=== PATIENT | male | born 1955 | race Caucasian/White ===

== ENCOUNTER → 2024-05-11 | Outpatient (CLI) | payer MEDICARE, SELFPAY ==
[2024-05-11 09:47] LABS: Collection Type, Urine Clean Catch; Squamous Epithelial Cell,Urine 0 /hpf (0-5)
[2024-05-11 10:27] LABS: Glucose Estimated Average 123 mg/dL (80-131); Hemoglobin A1C 5.9 % Hgb (4.8-6.0)
[2024-05-11 10:38] LABS: Albumin, Serum 4.4 gm/dL (3.4-4.8); Anion Gap 6 (7-16); BUN/Creatinine Ratio 11 Ratio (12-20); Blood Urea Nitrogen 18 mg/dL (9-23); Calcium 8.9 mg/dL (8.3-10.6); Calcium (Corrected) 8.9 mg/dL (8.5-10.1); Carbon Dioxide 35.4 mMol/L (20.0-31.0); Chloride 99 mMol/L (98-107); Creatinine (Component) 1.6 mg/dL (0.6-1.3); Glucose 178 mg/dL (74-106); Magnesium 1.2 mg/dL (1.6-2.6); Osmolality,Calculated 285 (275-295); Phosphorous 2.6 mg/dL (2.4-5.1); Potassium 3.1 mMol/L (3.4-5.1); Sodium 140 mMol/L (136-145); eGFR 46 See Note
[2024-05-11 10:39] LABS: Basophils % (Auto) 0 % (0-2.5); Eosinophils # (Auto) 0.1 Thou/mm3 (0.0-0.5); Eosinophils % (Auto) 2 % (0-10); Hematocrit 41.3 % (41.0-53.0); Hemoglobin 14.6 g/dL (13.5-16.0); Immature Granulocytes % (Auto) 0 % (0-0); Immature Granulocytes Auto 0.03 Thou/mm3 (0.00-0.00); Lymphocytes # (Auto) 1.8 Thou/mm3 (1.0-4.8); Lymphocytes % (Auto) 23 % (10-50); Mean Corpuscular HGB Conc 35.4 g/dl (31.0-37.0); Mean Corpuscular Hemoglobin 29.9 pg (25.0-35.0); Mean Corpuscular Volume 85 fL (80-100); Monocytes # (Auto) 0.8 Thou/mm3 (0.0-0.8); Monocytes % (Auto) 10 % (0-12); Neutrophils % (Auto) 65 % (37-80); Nucleated Red Blood Cell % 0 /100 WBC (0); Platelet Count 165 Thou/mm3 (140-440); RDW Standard Deviation 45.6 fL (35.1-43.9); Red Blood Count 4.88 Miln/mm3 (4.50-5.90); White Blood Count 7.7 Thou/mm3 (3.8-10.6)
[2024-05-11 10:50] LABS: Bilirubin,Urine Negative (Negative); Blood,Urine Negative (Negative); Clarity,Urine Clear (Clear/Hazy); Color,Urine Yellow (Lt Yel-Yel); Glucose, Urine 4+ (Negative); Ketones,Urine Negative (Negative); Leukocyte Esterase,Urine Negative (Negative); Nitrite,Urine Negative (Negative); PH,Urine 6.5 (5.0-7.0); Protein,Urine 1+ (Neg - Trace); RBC,Urine 1 /hpf (0-3); Specific Gravity,Urine 1.026 (1.001-1.035); Urobilinogen,Urine Negative mg/dL (0.0-1.0); WBC,Urine < 1 /hpf (0-5)
[2024-05-18 06:37] LABS: Osmolality, Urine* 563 mOsm/kg (50-1200)
== END | disposition home or self-care (01) ==
PROVIDERS: PCP Internal Medicine Nephrology; Referring Provider Internal Medicine Nephrology; Visit Provider Internal Medicine Nephrology
DX: E11.9 Type 2 diabetes mellitus without complications (principal); I10 Essential (primary) hypertension; G62.9 Polyneuropathy, unspecified
CPT/HCPCS: 36415; 80069; 81001; 83036; 83735; 83935; 85025

== ENCOUNTER → 2024-08-11 | Outpatient (CLI) | payer MEDICARE, SELFPAY ==
[2024-08-11 09:51] LABS: Collection Type, Urine Clean Catch
[2024-08-11 10:08] LABS: Basophils % (Auto) 1 % (0-2.5); Eosinophils # (Auto) 0.1 Thou/mm3 (0.0-0.5); Eosinophils % (Auto) 1 % (0-10); Hematocrit 34.4 % (41.0-53.0); Hemoglobin 11.8 g/dL (13.5-16.0); Immature Granulocytes % (Auto) 0 % (0-0); Immature Granulocytes Auto 0.01 Thou/mm3 (0.00-0.00); Lymphocytes # (Auto) 1.1 Thou/mm3 (1.0-4.8); Lymphocytes % (Auto) 26 % (10-50); Mean Corpuscular HGB Conc 34.3 g/dl (31.0-37.0); Mean Corpuscular Hemoglobin 30.3 pg (25.0-35.0); Mean Corpuscular Volume 88 fL (80-100); Monocytes # (Auto) 0.5 Thou/mm3 (0.0-0.8); Monocytes % (Auto) 11 % (0-12); Neutrophils # (Auto) 2.7 Thou/mm3 (1.8-7.7); Neutrophils % (Auto) 62 % (37-80); Nucleated Red Blood Cell % 0 /100 WBC (0); Platelet Count 150 Thou/mm3 (140-440); RDW Standard Deviation 52.6 fL (35.1-43.9); White Blood Count 4.4 Thou/mm3 (3.8-10.6)
[2024-08-11 10:14] LABS: Bilirubin,Urine Negative (Negative); Blood,Urine Negative (Negative); Clarity,Urine Clear (Clear/Hazy); Color,Urine Lt-Yellow (Lt Yel-Yel); Glucose, Urine Negative (Negative); Ketones,Urine Negative (Negative); Leukocyte Esterase,Urine Negative (Negative); Nitrite,Urine Negative (Negative); PH,Urine 6.5 (5.0-7.0); Protein,Urine Negative (Neg - Trace); RBC,Urine 2 /hpf (0-3); Specific Gravity,Urine 1.009 (1.001-1.035); Squamous Epithelial Cell,Urine < 1 /hpf (0-5); Urobilinogen,Urine Negative mg/dL (0.0-1.0); WBC,Urine 3 /hpf (0-5)
[2024-08-11 10:22] LABS: Sed Rate (ESR) 3 mm/hr (0-20)
[2024-08-11 10:31] LABS: Glucose Estimated Average 114 mg/dL (80-131); Hemoglobin A1C 5.6 % Hgb (4.8-6.0)
[2024-08-11 10:41] LABS: Anion Gap 11 (7-16); Blood Urea Nitrogen 27 mg/dL (9-23); Carbon Dioxide 35.3 mMol/L (20.0-31.0); Chloride 98 mMol/L (98-107); Potassium 3.2 mMol/L (3.4-5.1); Sodium 144 mMol/L (136-145)
[2024-08-11 10:42] LABS: Alanine Aminotransferase 14 U/L (10-49); Albumin/Globulin Ratio 1.7 (1.2-2.2); Alkaline Phosphatase 89 U/L (46-116); Aspartate Amino Transferase 19 U/L (0-34); BUN/Creatinine Ratio 16 Ratio (12-20); Bilirubin,Total 0.5 mg/dL (0.3-1.2); Calcium 9.9 mg/dL (8.3-10.6); Calcium (Corrected) 9.9 mg/dL (8.5-10.1); Cardiac Risk Estimate 3.3 RATIO (4.0-6.7); Cholesterol 143 mg/dL (132-200); Creatinine (Component) 1.7 mg/dL (0.6-1.3); Globulin 2.3 gm/dL (2.3-3.5); Glucose 162 mg/dL (74-106); HDL Cholesterol 44 mg/dL (40-60); LDL Cholesterol,Calculated 65 mg/dL (0-130); Magnesium 1.3 mg/dL (1.6-2.6); Osmolality,Calculated 295 (275-295); Phosphorous 2.8 mg/dL (2.4-5.1); Total Protein 6.3 gm/dL (5.7-8.2); Triglycerides 171 mg/dL (30-150); eGFR 43 See Note
[2024-08-11 14:55] LABS: Parathyroid Hormone Intact 229.2 pg/ml (18.5-88.0)
== END | disposition home or self-care (01) ==
PROVIDERS: PCP Internal Medicine; Referring Provider Internal Medicine; Visit Provider Internal Medicine
DX: I12.9 Hypertensive chronic kidney disease with stage 1 through stage 4 chronic kidney disease, or unspecified chronic kidney disease (principal); E11.22 Type 2 diabetes mellitus with diabetic chronic kidney disease; N18.31 Chronic kidney disease, stage 3a; E83.39 Other disorders of phosphorus metabolism; E21.5 Disorder of parathyroid gland, unspecified; R53.83 Other fatigue; E11.65 Type 2 diabetes mellitus with hyperglycemia
CPT/HCPCS: 36415; 80053; 80061; 81001; 83036; 83735; 83970; 84100; 84153; 84550; 85025; 85652

== ENCOUNTER 2024-09-10 08:01 | Outpatient (RCR) | payer MEDICARE, SELFPAY ==
--- NOTE | 2024-09-10 08:30 | XR_ITS ---
Examination: Nuclear medicine parathyroid scan TECHNIQUE: Intravenous administration 26 mCi technetium 99m sestamibi, anterior pinhole and chest images obtained before hours Exam date and time: September 10, 2024 0819 hours INDICATIONS: Hypertension elevated PTH on laboratory examination this month FINDINGS: Normal salivary and thyroid activity Very subtle increased isotope accumulation overlying the lower pole left thyroid IMPRESSION: Suspicious for small left parathyroid adenoma overlying the lower pole left thyroid Recommend thyroid sonography follow-up
== END 2024-09-15 23:59 | disposition home or self-care (01) ==
LOC: SNUC 08:01
PROVIDERS: PCP Internal Medicine; Referring Provider Internal Medicine; Visit Provider Internal Medicine
DX: E05.80 Other thyrotoxicosis without thyrotoxic crisis or storm (principal)
CPT/HCPCS: 78070; A9500

== ENCOUNTER → 2024-09-22 | Outpatient (CLI) | payer MEDICARE, SELFPAY ==
[2024-09-22 10:10] LABS: Anion Gap 11 (7-16); BUN/Creatinine Ratio 17 Ratio (12-20); Blood Urea Nitrogen 33 mg/dL (9-23); Calcium 10.2 mg/dL (8.3-10.6); Carbon Dioxide 35.3 mMol/L (20.0-31.0); Chloride 98 mMol/L (98-107); Glucose 139 mg/dL (74-106); Magnesium 1.1 mg/dL (1.6-2.6); Osmolality,Calculated 296 (275-295); Potassium 3.2 mMol/L (3.4-5.1); Sodium 144 mMol/L (136-145); eGFR 35 See Note
== END | disposition home or self-care (01) ==
LOC: COPL 08:26
PROVIDERS: PCP Internal Medicine; Referring Provider Internal Medicine Cardiovascular Disease; Visit Provider Internal Medicine Cardiovascular Disease
DX: I50.23 Acute on chronic systolic (congestive) heart failure (principal)
CPT/HCPCS: 36415; 80048; 83735

== ENCOUNTER → 2024-10-27 | Outpatient (CLI) | payer MEDICARE, SELFPAY ==
[2024-10-27 10:56] LABS: Anion Gap 7 (7-16); BUN/Creatinine Ratio 18 Ratio (12-20); Blood Urea Nitrogen 36 mg/dL (9-23); Calcium 10.5 mg/dL (8.3-10.6); Chloride 101 mMol/L (98-107); Glucose 155 mg/dL (74-106); Magnesium 1.6 mg/dL (1.6-2.6); Osmolality,Calculated 294 (275-295); Potassium 3.3 mMol/L (3.4-5.1); Sodium 142 mMol/L (136-145); eGFR 35 See Note
== END | disposition home or self-care (01) ==
LOC: COPL 09:12
PROVIDERS: PCP Internal Medicine; Referring Provider Internal Medicine Cardiovascular Disease; Visit Provider Internal Medicine Cardiovascular Disease
DX: I50.23 Acute on chronic systolic (congestive) heart failure (principal)
CPT/HCPCS: 36415; 80048; 83735

== ENCOUNTER → 2024-11-25 | Outpatient (CLI) | payer MEDICARE, SELFPAY ==
--- NOTE | 2024-11-25 14:30 | XR_ITS ---
Examination: CT abdomen without intravenous contrast. Coronal 2-D reconstructions. Sagittal 2-D reconstructions. Date and time of exam:November 25, 2024 1447 hours Comparison July 15, 2023 INDICATIONS: Abdominal pain beginning 4 months ago, history kidney stones CTDI: vol (mGy): 9.36 DLP: (mGycm): 325 Technique: Axial images of the abdomen have been obtained, 3 mm slice thickness, without intravenous contrast 2-D sagittal coronal reconstructions Low dose protocols were performed. One or more of the following dose reduction techniques were used; automated exposure control, adjustment of the mA and/or KV according to patient size, use of iterative reconstruction technique. Findings: No focal liver or splenic lesions Absent gallbladder No pancreatic or adrenal mass Moderate renal parenchymal scar formation Mild ascites 1 mm posterior left renal calculus Multiple left renal cysts No hydronephrosis Aorta calcification IMPRESSION: Mild ascites, clinical correlation advised 1 mm nonobstructing breast left renal calculus
== END | disposition home or self-care (01) ==
LOC: SCAT 14:05
PROVIDERS: PCP Nurse Practitioner Family; Referring Provider Nurse Practitioner Family; Visit Provider Nurse Practitioner Family
DX: R18.8 Other ascites (principal); N20.0 Calculus of kidney
CPT/HCPCS: 74150

== ENCOUNTER → 2024-12-14 | Outpatient (CLI) | payer MEDICARE, SELFPAY ==
[2024-12-14 09:36] LABS: Anion Gap 9 (7-16); BUN/Creatinine Ratio 19 Ratio (12-20); Blood Urea Nitrogen 32 mg/dL (9-23); Calcium 10.1 mg/dL (8.3-10.6); Calcium (Corrected) 10.1 mg/dL (8.5-10.1); Carbon Dioxide 36.2 mMol/L (20.0-31.0); Chloride 100 mMol/L (98-107); Creatinine (Component) 1.7 mg/dL (0.6-1.3); Glucose 137 mg/dL (74-106); Osmolality,Calculated 297 (275-295); Sodium 145 mMol/L (136-145); eGFR 43 See Note
[2024-12-20 07:15] LABS: Testosterone, Free,Dialysis 65.9 pg/mL (30.0-135.0); Testosterone, Total, Dialysis 444 ng/dL (250-1100)
== END | disposition home or self-care (01) ==
LOC: COPL 08:17
PROVIDERS: PCP Internal Medicine; Referring Provider Internal Medicine; Visit Provider Internal Medicine
DX: R10.30 Lower abdominal pain, unspecified (principal)
CPT/HCPCS: 36415; 80069; 84402; 84403

== ENCOUNTER 2024-12-24 10:46 | Emergency (ER) | payer MEDICARE, SELFPAY ==
[2024-12-24 10:47] VITALS: BMI 25.7
[2024-12-24 10:54] VITALS: BP 112/69; PULSE 65; RESP 17; TEMP 36.4; O2SAT 97
--- NOTE | 2024-12-24 11:01 | XR_ITS ---
Examination: Foot, left, 3 views Technique: AP, oblique, lateral views foot, 3 views Date and time of exam: December 24, 2024 1108 hours INDICATIONS: Injury to the foot yesterday, foot pain FINDINGS: Acute fractures at the base of the distal phalanx third digit without significant displacement Severe osteopenia IMPRESSION: Acute fractures at the base of the distal phalanx first digit without significant displacement
--- NOTE | 2024-12-24 13:01 | PD.EDANKLE ---
Lower Extremity Injury RME/HPI General Chief Complaint: Ankle/Foot Injury Stated Complaint: INJURY TO LEFT GREAT TOE YESTERDAY AT 1500 Time Seen by Provider: 12/24/24 13:00 Arrival date/time: 12/24/24 10:46 69-year-old male presents to the Emergency Department today complaints of left great toe injury patient reports he had dropped a heavy board on his left great toe yesterday at around 3 PM Limitations: no limitations Related Data Home Medications ?Medication ?Instructions ?Recorded ?Confirmed duloxetine 60 mg capsule,delayed 60 mg PO DAILY 02/19/19 12/29/23 release metoprolol succinate 100 mg 100 mg PO DAILY 02/19/19 12/29/23 tablet,extended release 24 hr tamsulosin 0.4 mg capsule 0.8 mg PO QDAY 02/19/19 12/29/23 amlodipine 10 mg tablet 10 mg PO DAILY 12/29/23 12/29/23 cinacalcet 30 mg tablet 30 mg PO QDAY 12/29/23 12/29/23 clonidine HCl 0.2 mg tablet 0.2 mg PO BID 12/29/23 12/29/23 cyclobenzaprine 10 mg tablet 10 mg PO HS 12/29/23 12/29/23 dapagliflozin propanediol 10 mg 10 mg PO QAM 12/29/23 12/29/23 tablet (Farxiga) fosinopril 10 mg tablet 10 mg PO HS 12/29/23 12/29/23 hydralazine 50 mg tablet 50 mg PO TID 12/29/23 12/29/23 linagliptin 5 mg tablet (Tradjenta) 5 mg PO HS 12/29/23 12/29/23 omeprazole 40 mg capsule,delayed 40 mg PO QDAY 12/29/23 12/29/23 release pregabalin 100 mg capsule 100 mg PO BID 12/29/23 12/29/23 semaglutide 3 mg tablet (Rybelsus) 3 mg PO QDAY 12/29/23 12/29/23 tadalafil 5 mg tablet 5 mg PO HS 12/29/23 12/29/23 trazodone 100 mg tablet 200 mg PO HS 12/29/23 12/29/23 Previous Rx's ?Medication ?Instructions ?Recorded docusate sodium 100 mg capsule 100 mg PO BID #40 caps 12/30/23 (Colace) hydrocodone 5 mg-acetaminophen 325 1 tab PO Q6H PRN pain (scale score 12/30/23 mg tablet 7-10) #20 tabs ibuprofen 600 mg tablet 600 mg PO Q8H PRN pain (scale 12/30/23 score 4-6) #15 tabs bacitracin 500 unit/gram topical 1 applic topical TID 7 days #28.4 12/24/24 ointment grams cephalexin 500 mg capsule 500 mg PO BID 7 days #14 caps 12/24/24 hydrocodone 5 mg-acetaminophen 325 1 tab PO BID PRN pain #10 tabs 12/24/24 mg tablet Allergies Allergy/AdvReac Type Severity Reaction Status Date / Time adhesive Allergy Severe Hives Verified 12/24/24 10:49 Review of Systems Review of Systems Systems Reviewed: All systems reviewed, normal except as documented Constitutional Constitutional: Reports system reviewed and no additional complaints, except as documented, Denies fever(s) and Denies headache(s) Eyes Eyes: Reports system reviewed and no additional complaints, except as documented and Denies blurry vision ENT Ears, Nose, Mouth, and Throat: Reports system reviewed and no additional complaints, except as documented, Denies headache(s), Denies nasal congestion and Denies nasal discharge Cardiovascular Cardiovascular: Reports system reviewed and no additional complaints, except as documented, Denies chest pain and Denies dyspnea Respiratory Respiratory: Reports system reviewed and no additional complaints, except as documented, Denies chest congestion, Denies cough and Denies dyspnea Gastrointestinal Gastrointestinal: Reports system reviewed and no additional complaints, except as documented and Denies abdominal pain Integumentary/Breasts Skin/Breast: Reports system reviewed and no additional complaints, except as documented, Denies rash and Reports wounds (Left great toe laceration) Neurologic Neurologic: Reports system reviewed and no additional complaints, except as documented, Reports as per HPI and Denies headache(s) Past Medical History Past Medical History NEUROLOGIC: Negative Neurological Disorders or Seizures CARDIAC: Positive Cardiac Disorders, Hypercholesterolemia and Hypertension; Negative Congestive Heart Failure RESPIRATORY: Positive Pneumonia; Negative Chronic Obstructive Pulmonary Disease (COPD) or Asthma GASTROINTESTINAL: Positive Gastrointestinal Disorders, Hiatal Hernia, Gastroesophageal Reflux Disease and Obesity; Negative Hepatitis GENITOURINARY: Positive Genitourinary Disorders, Kidney Stones and Inguinal Hernia; Negative Renal Disease MUSCULOSKELETAL: Positive Musculoskeletal Disorders, Arthritis and Carpal Tunnel Syndrome (right) ENDOCRINE: Positive Endocrine Disorders and Diabetes Mellitus Type 2; Negative Diabetes Mellitus Type 1 HEMATOLOGIC: Negative Blood Disorders or Sickle Cell Disease PSYCHO/SOCIAL: Positive Depression and Anxiety OTHER HISTORY: Positive Hospitalization (surgery, Hypertention), Blood Transfusions, Chicken Pox, Measles and Mumps; Negative Autoimmune Disease, Shingles, Falls, Blood Transfusion Reaction, Anesthesia Reactions or Cancer Family History FAMILY HISTORY: Positive Family Cardiac Disorders, Family Cancer and Family Surgery; Negative Family Psychiatric Problems, Family Respiratory Disorders, Family Gastrointestinal Problems or Family Anesthesia Reaction Surgical History SURGICAL: Positive Cardiac Catheterization (clear), Nose Surgery (septum), Throat Surgery (uvulectomy), Joint Replacement (x2 neck fusion) and Arthroscopy (Left knee); Negative Cardiac Surgery Social History SMOKING STATUS: Never smoker SECOND HAND EXPOSURE: No SUBSTANCE USE: does not use ED Exam General Limitations: Present no limitations General appearance: Present alert and in no apparent distress Head Head exam: Present atraumatic, normocephalic and normal inspection Eye Eye exam: Present normal appearance, PERRL and EOMI; Absent conjunctival injection ENT ENT exam: Present normal exam, normal oropharynx and mucous membranes moist Neck Neck exam: Present normal inspection, full ROM and trachea midline Chest Chest inspection: Present normal inspection and symmetric chest wall rise Respiratory Respiratory exam: Present normal lung sounds bilaterally Cardiovascular Cardiovascular exam: Present regular rate, normal rhythm and normal heart sounds Abdominal Exam Abdominal exam: Present soft and normal bowel sounds Extremities Exam Extremities exam: Present full ROM, tenderness, normal capillary refill and joint swelling; Absent pedal edema or calf tenderness Back Exam Back exam: Present normal inspection and full ROM Neurological Exam Neurological exam: Present alert, oriented X3 and CN II-XII intact Psychiatric Psychiatric exam: Present normal affect and normal mood Skin Skin exam: Present warm, dry, intact and normal color Course Quality Measures none Orders Category Date Time Status XR foot comp LT min 3V Stat Exams 12/24/24 11:01 Completed Vital Signs Vital signs: Vital Signs Temperature 97.6 F 12/24/24 10:54 Pulse Rate 65 12/24/24 10:54 Respiratory Rate 17 12/24/24 10:54 Blood Pressure 112/69 12/24/24 10:54 Pulse Oximetry (%) 97 12/24/24 10:54 Oxygen Delivery Method Room Air 12/24/24 10:54 O2 saturation 97% room air within normal limits Extremity Injury, Lower MDM Narrative MDM Narrative:: 69-year-old male presents to the Emergency Department today complaints of left great toe injury patient reports he had dropped a heavy board on his left great toe yesterday at around 3 PM On exam patient is tenderness and swelling left great toe with superficial laceration. Patient reports tetanus up-to-date X-ray obtained consistent with fracture of the left great toe Patient struck to remain nonweightbearing As patient is diabetic patient discharged home with a course of antibiotics as well as pain medication Patient discharged home in no distress to follow-up with primary care doctor in the next 24 to 48 hours and for any worsening symptoms to return to the ER immediately Patient data External records reviewed:: [facility] previous records Clinical information provided by:: patient Social determinants that could affect healthcare access:: none Patient has the following chronic illnesses:: See history How is presenting disease/condition affected by chronic disease/condition?: uneffected by Evaluation data The following diagnostics were reviewed and interpreted by me:: radiology exam(s) Lab and/or radiology exams considered but not ordered:: Radiology Interpretation Summary: Reviewed by me Medications / Prescriptions Medications or Prescriptions considered but not ordered:: Given Medication administrations:: Given Consultations Consultation(s) initiated? (list below): No Diagnosis Extremity Injury, Lower Differential Diagnosis: other (Toe fracture, toe sprain, hematoma) Most likely diagnosis given after review of the tests above:: Fracture of toe Admission Indicated Admission indicated?: not indicated Admission Request Was there a request for admission?: No Disposition Plan Disposition Plan: Discharge Discharge Attestation Discharge Attestation: The patient and all family members were given an opportunity to ask questions and understood the discharge instructions. Discharge instructions specifically effects, indications for sooner follow up or return to the emergency department, and the expected course of current diagnosis. Patient condition: Stable Discharge Plan Plan Patient Disposition: HOME (Self Care) Discharge Disposition comment: Stable Prescriptions/Referrals Prescriptions/Med Rec: New hydrocodone-acetaminophen 5-325 mg tablet 1 tab PO BID MDD 10 PRN (Reason: pain) Qty: 10 0RF bacitracin 500 unit/gram ointment 1 applic topical TID 7 Days Qty: 28.4 0RF cephalexin 500 mg capsule 500 mg PO BID 7 Days Qty: 14 0RF No Action metoprolol succinate 100 mg tablet extended release 24 hr 100 mg PO DAILY Patient Comments: TAKE 1 TABLET BY MOUTH EVERY DAY tamsulosin 0.4 mg capsule 0.8 mg PO QDAY duloxetine 60 mg capsule,delayed release(DR/EC) 60 mg PO DAILY Patient Comments: TAKE 1 CAPSULE BY MOUTH EVERY DAY cyclobenzaprine 10 mg Tablet 10 mg PO HS fosinopril 10 mg Tablet 10 mg PO HS omeprazole 40 mg Capsule,Delayed Release(Dr/Ec) 40 mg PO QDAY clonidine HCl 0.2 mg Tablet 0.2 mg PO BID trazodone 100 mg Tablet 200 mg PO HS amlodipine 10 mg tablet 10 mg PO DAILY Patient Comments: TAKE 1 TABLET BY MOUTH ONCE DAILY hydralazine 50 mg Tablet 50 mg PO TID tadalafil 5 mg Tablet 5 mg PO HS cinacalcet 30 mg Tablet 30 mg PO QDAY pregabalin 100 mg capsule 100 mg PO BID Tradjenta 5 mg tablet 5 mg PO HS Patient Comments: TAKE 1 TABLET BY MOUTH ONCE DAILY dapagliflozin propanediol [Farxiga] 10 mg Tablet 10 mg PO QAM Rybelsus 3 mg Tablet 3 mg PO QDAY docusate sodium [Colace] 100 mg capsule 100 mg PO BID Qty: 40 0RF ibuprofen 600 mg tablet 600 mg PO Q8H PRN (Reason: pain (scale score 4-6)) Qty: 15 0RF hydrocodone-acetaminophen 5-325 mg tablet 1 tab PO Q6H MDD 4 PRN (Reason: pain (scale score 7-10)) Qty: 20 0RF Referrals: Amber Tracey [Primary Care Provider] - In 1 week Problem List Clinical Impression: Fracture of left great toe Patient/Caregiver Discharge Instructions Education Materials: [facility] Additional Instructions: Please follow up with your primary care doctor in the next 24-48hrs for any worsening symptoms return here immediately Print Language: Turkish Stand Alone Forms: Miranda Award Info., Patient Portal Info Letter PA/GROUP LEADER [employer] Supervising Physician PA/GROUP LEADER [employer] Supervising Physician: Dr cristina
== END 2024-12-24 15:26 | disposition home or self-care (01) ==
PROVIDERS: Emergency Provider Emergency Medicine; PCP Internal Medicine
DX: S92.425A Nondisplaced fracture of distal phalanx of left great toe, initial encounter for closed fracture (principal); W20.8XXA Other cause of strike by thrown, projected or falling object, initial encounter
CPT/HCPCS: 73630; 99283

== ENCOUNTER → 2025-03-30 | Outpatient (CLI) | payer MEDICARE, SELFPAY ==
--- NOTE | 2025-03-30 08:48 | XR_ITS ---
Examination: PA lateral chest 2 views TECHNIQUE: Upright PA lateral chest 2 views Date and time: March 30, 2025 0920 hours, comparison October 22, 2022 INDICATIONS: Preop, coughing 6 weeks. FINDINGS: Mild prominence left ventricle. CABG. No pneumonia or pulmonary edema. Prominent osteopenia IMPRESSION: No active disease.
[2025-03-30 10:49] LABS: INR 1.1 (0.9-1.3); Prothrombin Time 12.1 Seconds (9.0-12.2)
[2025-03-30 10:53] LABS: Basophils # (Auto) 0.0 Thou/mm3 (0.0-0.2); Basophils % (Auto) 0 % (0-2.5); Eosinophils # (Auto) 0.1 Thou/mm3 (0.0-0.5); Eosinophils % (Auto) 1 % (0-10); Hematocrit 38.0 % (41.0-53.0); Hemoglobin 12.5 g/dL (13.5-16.0); Immature Granulocytes Auto 0.01 Thou/mm3 (0.00-0.00); Lymphocytes # (Auto) 0.9 Thou/mm3 (1.0-4.8); Lymphocytes % (Auto) 23 % (10-50); Mean Corpuscular HGB Conc 32.9 g/dl (31.0-37.0); Mean Corpuscular Hemoglobin 30.3 pg (25.0-35.0); Mean Corpuscular Volume 92 fL (80-100); Monocytes # (Auto) 0.4 Thou/mm3 (0.0-0.8); Monocytes % (Auto) 9 % (0-12); Neutrophils # (Auto) 2.5 Thou/mm3 (1.8-7.7); Neutrophils % (Auto) 66 % (37-80); Nucleated Red Blood Cell # 0.00 Thou/mm3 (0.00-0.00); Nucleated Red Blood Cell % 0 /100 WBC (0); Platelet Count 98 Thou/mm3 (140-440); RDW Standard Deviation 48.5 fL (35.1-43.9); Red Blood Count 4.12 Miln/mm3 (4.50-5.90); White Blood Count 3.8 Thou/mm3 (3.8-10.6)
[2025-03-30 10:55] LABS: Glucose Estimated Average 114 mg/dL (80-131); Hemoglobin A1C 5.6 % Hgb (4.8-6.0); Prostate Specific Antigen 2.19 ng/mL (0-4.00)
[2025-03-30 10:59] LABS: Alanine Aminotransferase 22 U/L (10-49); Albumin, Serum 4.3 gm/dL (3.4-4.8); Albumin/Globulin Ratio 2.0 (1.2-2.2); Alkaline Phosphatase 94 U/L (46-116); Anion Gap 9 (7-16); Aspartate Amino Transferase 27 U/L (0-34); BUN/Creatinine Ratio 14 Ratio (12-20); Bilirubin,Total 0.4 mg/dL (0.3-1.2); Blood Urea Nitrogen 23 mg/dL (9-23); Calcium 9.5 mg/dL (8.3-10.6); Calcium (Corrected) 9.5 mg/dL (8.5-10.1); Carbon Dioxide 37.4 mMol/L (20.0-31.0); Chloride 100 mMol/L (98-107); Creatinine (Component) 1.7 mg/dL (0.6-1.3); Globulin 2.2 gm/dL (2.3-3.5); Glucose 135 mg/dL (74-106); Magnesium 1.1 mg/dL (1.6-2.6); Osmolality,Calculated 296 (275-295); Phosphorous 2.7 mg/dL (2.4-5.1); Potassium 3.0 mMol/L (3.4-5.1); Sodium 146 mMol/L (136-145); Total Protein 6.5 gm/dL (5.7-8.2); eGFR 43 See Note
[2025-03-30 11:00] LABS: Vitamin B12 446 pg/mL (211-911); Vitamin D 25 Hydroxy Total 51.8 ng/mL (7.3-40.2)
== END | disposition home or self-care (01) ==
LOC: CDIM 08:40 → COPL 09:26
PROVIDERS: PCP Internal Medicine; Referring Provider Internal Medicine; Visit Provider Radiology Diagnostic Radiology
DX: R05.3 Chronic cough (principal); I10 Essential (primary) hypertension; E21.3 Hyperparathyroidism, unspecified; E11.21 Type 2 diabetes mellitus with diabetic nephropathy
CPT/HCPCS: 36415; 71046; 80053; 82306; 82607; 83036; 83735; 84100; 84153; 85025; 85610

== ENCOUNTER → 2025-03-30 | Outpatient (CLI) | payer MEDICARE, SELFPAY ==
--- NOTE | 2025-03-30 10:22 | XR_ITS ---
Examination: Thyroid sonography complete TECHNIQUE: Grayscale sonographic images thyroid lobes Date and time: March 30, 2025, 1041 hours INDICATIONS: Nuclear medicine parathyroid scan September 10, 2024 suspicious for small left parathyroid adenoma overlying the lower pole left thyroid gland FINDINGS: Right thyroid 5.5 cm Midpole nodule 8 x 11 mm Nodule below the right lobe of the thyroid 5 x 6 x 6 mm Left thyroid 4.7 cm Midpole cystic solid nodule with vascularity 12 x 10 mm Bilateral smaller nodules IMPRESSION: Multiple thyroid nodules Consider ultrasound-guided fine-needle aspiration of the vascular midpole left thyroid nodule Nodule below the right lobe of the thyroid consistent with parathyroid adenoma, 5 x 6 x 6 mm
== END | disposition home or self-care (01) ==
LOC: CDIM 10:18
PROVIDERS: PCP Internal Medicine
DX: E04.2 Nontoxic multinodular goiter (principal)
CPT/HCPCS: 76536

== ENCOUNTER → 2025-04-15 | Outpatient (CLI) | payer MEDICARE, SELFPAY ==
--- NOTE | 2025-04-15 12:03 | EKG_ITS ---
[facility] Test Date: 2025-04-15 Pat Name: DEEDEE CHANG Department: Room: - Gender: Male Nutritional Services Host: AD : 1955 Requested By: Amber Tracey Order Number: [id number] Reading MD: Amber Tracey Measurements Intervals [place] Rate: 64 P: 32 NM: 184 QRS: -22 QRSD: 143 T: 67 QT: 473 QTc: 488 Interpretive Statements SINUS RHYTHM WITH FREQUENT VENTRICULAR PREMATURE COMPLEXES INTRAVENTRICULAR CONDUCTION DELAY [130+ ms QRS DURATION] INFERIOR MYOCARDIAL INFARCTION , PROBABLY OLD [40+ ms Q WAVE AND/OR ST/T ABNORMALITY IN II/aVF] Compared to ECG 12/29/2023 09:55:23 Ventricular premature complex(es) now present Intraventricular conduction delay now present Myocardial infarct finding still present /store/S0/[id number].pdf
== END | disposition home or self-care (01) ==
PROVIDERS: PCP Internal Medicine; Referring Provider Internal Medicine; Visit Provider Internal Medicine
DX: R07.0 Pain in throat (principal)
CPT/HCPCS: 93005

== ENCOUNTER 2025-06-13 12:44 | Emergency (ER) | payer MEDICARE, SELFPAY ==
[2025-06-13 13:17] VITALS: BP 160/86; PULSE 64; RESP 19; TEMP 36.8; O2SAT 96; BMI 26.4
--- NOTE | 2025-06-13 13:31 | EKG_ITS ---
[facility] Test Date: 2025-06-13 Pat Name: DEEDEE CHANG Department: Room: - Gender: Male Sales Development Manager: : 1955 Requested By: Javi Cortez Order Number: [id number] Reading MD: Javi Cortez Measurements Intervals [place] Rate: 72 P: 56 DE: 165 QRS: 28 QRSD: 126 T: 66 QT: 370 QTc: 408 Interpretive Statements SINUS RHYTHM WITH OCCASIONAL VENTRICULAR PREMATURE COMPLEXES WITH OCCASIONAL SUPRAVENTRICULAR PREMATURE COMPLEXES ANTERIOR MYOCARDIAL INFARCTION , OF INDETERMINATE AGE [40+ ms Q WAVE AND/OR ST/T ABNORMALITY IN V3/V4] INFERIOR MYOCARDIAL INFARCTION , PROBABLY OLD [40+ ms Q WAVE AND/OR ST/T ABNORMALITY IN II/aVF] Compared to ECG 04/15/2025 12:07:10 Intraventricular conduction delay no longer present Myocardial infarct finding still present /store/S0/[id number].pdf
--- NOTE | 2025-06-13 13:31 | XR_ITS ---
PA upright chest film on 06/13/2025 at 1:59 p.m. Comparison study 03/30/2025 CLINICAL INDICATION: Left-sided chest pain flank pain for 2 days no known drug FINDINGS: Sternotomy wire sutures are seen from previous chest surgery, and innumerable small surgical clips are seen overlying the left heart border and upper portion of the left hilum, probably related to previous CABG surgery additional surgical clips are seen over the lower portion of the cardiac silhouette. All of these findings are stable and unchanged heart size is felt to be slightly enlarged, and is unchanged since the previous chest Postsurgical hardware is noted overlapping the lower cervical spine and this is unchanged from the previous chest film both lungs are clear no pleural fluid is seen. IMPRESSION: 1. Status post CABG surgery. Mild prominence of the left ventricle. These findings are stable and unchanged 2. Lungs and pleural space are clear and normal 3 postsurgical hardware is seen overlapping the lower cervical spine, also unchanged
[2025-06-13 14:13] LABS: Collection Type, Urine Clean Catch; Squamous Epithelial Cell,Urine 0 /hpf (0-5)
--- NOTE | 2025-06-13 14:15 | PD.EDCHEST ---
ED Chest Pain RME/HPI General Chief Complaint: General Adult/Misc Complain Stated Complaint: PAIN L) SIDE 02/13 Time Seen by Provider: 06/13/25 13:01 Source: patient Arrival date/time: 06/13/25 12:44 69-year-old male with a history of hypertension, hyperlipidemia, chronic kidney disease, presents to the emergency room with a chief complaint of left-sided sternal chest pain x 3 days Mode of arrival: ambulatory Limitations: no limitations Related Data Home Medications ?Medication ?Instructions ?Recorded ?Confirmed duloxetine 60 mg capsule,delayed 60 mg PO DAILY 02/19/19 12/29/23 release metoprolol succinate 100 mg 100 mg PO DAILY 02/19/19 12/29/23 tablet,extended release 24 hr tamsulosin 0.4 mg capsule 0.8 mg PO QDAY 02/19/19 12/29/23 amlodipine 10 mg tablet 10 mg PO DAILY 12/29/23 12/29/23 cinacalcet 30 mg tablet 30 mg PO QDAY 12/29/23 12/29/23 clonidine HCl 0.2 mg tablet 0.2 mg PO BID 12/29/23 12/29/23 cyclobenzaprine 10 mg tablet 10 mg PO HS 12/29/23 12/29/23 dapagliflozin propanediol 10 mg 10 mg PO QAM 12/29/23 12/29/23 tablet (Farxiga) fosinopril 10 mg tablet 10 mg PO HS 12/29/23 12/29/23 hydralazine 50 mg tablet 50 mg PO TID 12/29/23 12/29/23 linagliptin 5 mg tablet (Tradjenta) 5 mg PO HS 12/29/23 12/29/23 omeprazole 40 mg capsule,delayed 40 mg PO QDAY 12/29/23 12/29/23 release pregabalin 100 mg capsule 100 mg PO BID 12/29/23 12/29/23 semaglutide 3 mg tablet (Rybelsus) 3 mg PO QDAY 12/29/23 12/29/23 tadalafil 5 mg tablet 5 mg PO HS 12/29/23 12/29/23 trazodone 100 mg tablet 200 mg PO HS 12/29/23 12/29/23 Previous Rx's ?Medication ?Instructions ?Recorded docusate sodium 100 mg capsule 100 mg PO BID #40 caps 12/30/23 (Colace) hydrocodone 5 mg-acetaminophen 325 1 tab PO Q6H PRN pain (scale score 12/30/23 mg tablet 7-10) #20 tabs ibuprofen 600 mg tablet 600 mg PO Q8H PRN pain (scale 12/30/23 score 4-6) #15 tabs hydrocodone 5 mg-acetaminophen 325 1 tab PO BID PRN pain #10 tabs 12/24/24 mg tablet Allergies Allergy/AdvReac Type Severity Reaction Status Date / Time adhesive Allergy Severe Hives Verified 06/13/25 12:48 ED Exam General Limitations: Present no limitations Course Orders Category Date Time Status EKG (ED ONLY) *Do not use* NOW Care 06/13/25 13:31 Completed EKG (ED Only) Stat Exams 06/13/25 13:31 Ordered XR chest 1V portable Stat Exams 06/13/25 13:31 Taken B-Type Natriuretic Peptide Stat Lab 06/13/25 13:51 Received CBC Stat Lab 06/13/25 13:51 Received Comprehensive Metabolic Panel Stat Lab 06/13/25 13:51 Received Drug Screen,Urine Stat Lab 06/13/25 14:00 Received Free T4 (Free Thyroxine) Stat Lab 06/13/25 13:51 Received Magnesium Stat Lab 06/13/25 13:51 Received Partial Thromboplastin Time Stat Lab 06/13/25 13:51 Received Prothrombin Time with INR Stat Lab 06/13/25 13:51 Received TSH [Thyroid Stimulating Hormone] Stat Lab 06/13/25 13:51 Received Troponin I Stat Lab 06/13/25 13:51 Received Urinalysis, C/S if Indicated Stat Lab 06/13/25 14:00 Received Vital Signs Vital signs: Vital Signs Temperature 98.3 F 06/13/25 13:17 Pulse Rate 64 06/13/25 13:17 Respiratory Rate 19 06/13/25 13:17 Blood Pressure 160/86 H 06/13/25 13:17 Pulse Oximetry (%) 96 06/13/25 13:17 Oxygen Delivery Method Room Air 06/13/25 13:17 Discharge Plan Prescriptions/Referrals Prescriptions/Med Rec: No Action metoprolol succinate 100 mg tablet extended release 24 hr 100 mg PO DAILY Patient Comments: TAKE 1 TABLET BY MOUTH EVERY DAY tamsulosin 0.4 mg capsule 0.8 mg PO QDAY duloxetine 60 mg capsule,delayed release(DR/EC) 60 mg PO DAILY Patient Comments: TAKE 1 CAPSULE BY MOUTH EVERY DAY cyclobenzaprine 10 mg Tablet 10 mg PO HS fosinopril 10 mg Tablet 10 mg PO HS omeprazole 40 mg Capsule,Delayed Release(Dr/Ec) 40 mg PO QDAY clonidine HCl 0.2 mg Tablet 0.2 mg PO BID trazodone 100 mg Tablet 200 mg PO HS amlodipine 10 mg tablet 10 mg PO DAILY Patient Comments: TAKE 1 TABLET BY MOUTH ONCE DAILY hydralazine 50 mg Tablet 50 mg PO TID tadalafil 5 mg Tablet 5 mg PO HS cinacalcet 30 mg Tablet 30 mg PO QDAY pregabalin 100 mg capsule 100 mg PO BID Tradjenta 5 mg tablet 5 mg PO HS Patient Comments: TAKE 1 TABLET BY MOUTH ONCE DAILY dapagliflozin propanediol [Farxiga] 10 mg Tablet 10 mg PO QAM Rybelsus 3 mg Tablet 3 mg PO QDAY docusate sodium [Colace] 100 mg capsule 100 mg PO BID Qty: 40 0RF ibuprofen 600 mg tablet 600 mg PO Q8H PRN (Reason: pain (scale score 4-6)) Qty: 15 0RF hydrocodone-acetaminophen 5-325 mg tablet 1 tab PO Q6H MDD 4 PRN (Reason: pain (scale score 7-10)) Qty: 20 0RF hydrocodone-acetaminophen 5-325 mg tablet 1 tab PO BID MDD 10 PRN (Reason: pain) Qty: 10 0RF Referrals: Amber Tracey MD [Primary Care Provider] - In 1 week Patient/Caregiver Discharge Instructions Print Language: Chinese
[2025-06-13 14:24] LABS: Basophils # (Auto) 0.0 Thou/mm3 (0.0-0.2); Basophils % (Auto) 0 % (0-2.5); Eosinophils # (Auto) 0.1 Thou/mm3 (0.0-0.5); Eosinophils % (Auto) 1 % (0-10); Hematocrit 39.0 % (41.0-53.0); Hemoglobin 13.0 g/dL (13.5-16.0); Immature Granulocytes Auto 0.02 Thou/mm3 (0.00-0.00); Lymphocytes # (Auto) 1.1 Thou/mm3 (1.0-4.8); Lymphocytes % (Auto) 21 % (10-50); Mean Corpuscular HGB Conc 33.3 g/dl (31.0-37.0); Mean Corpuscular Hemoglobin 30.8 pg (25.0-35.0); Mean Corpuscular Volume 92 fL (80-100); Monocytes # (Auto) 0.5 Thou/mm3 (0.0-0.8); Monocytes % (Auto) 9 % (0-12); Neutrophils # (Auto) 3.8 Thou/mm3 (1.8-7.7); Neutrophils % (Auto) 69 % (37-80); Nucleated Red Blood Cell # 0.00 Thou/mm3 (0.00-0.00); Nucleated Red Blood Cell % 0 /100 WBC (0); Platelet Count 116 Thou/mm3 (140-440); RDW Standard Deviation 51.7 fL (35.1-43.9); Red Blood Count 4.22 Miln/mm3 (4.50-5.90); White Blood Count 5.5 Thou/mm3 (3.8-10.6)
[2025-06-13 14:34] LABS: Bilirubin,Urine Negative (Negative); Blood,Urine Negative (Negative); Clarity,Urine Clear (Clear/Hazy); Color,Urine Lt-Yellow (Lt Yel-Yel); Culture Indicated,Urine Not Indicated; Glucose, Urine Negative (Negative); Ketones,Urine Negative (Negative); Leukocyte Esterase,Urine Negative (Negative); Nitrite,Urine Negative (Negative); PH,Urine 6.5 (5.0-7.0); Protein,Urine Negative (Neg - Trace); RBC,Urine 1 /hpf (0-3); Specific Gravity,Urine 1.011 (1.001-1.035); Urobilinogen,Urine Negative mg/dL (0.0-1.0); WBC,Urine 1 /hpf (0-5)
[2025-06-13 14:36] LABS: INR 1.1 (0.9-1.3); Partial Thromboplastin Time 29.9 Seconds (22.0-36.0); Prothrombin Time 11.8 Seconds (9.0-12.2)
[2025-06-13 14:36] LABS: Amphetamine/Methamp Scrn,U Negative (Negative); Barbiturate Screen,Urine Negative (Negative); Benzodiazepines Screen,Urine Negative (Negative); Benzoylecgonine Screen, Ur Negative (Negative); Fentanyl Screen,Urine Negative (Negative); Opiate Screen,Urine Positive (Negative); THC Screen,Urine Negative (Negative)
[2025-06-13 14:41] LABS: Alanine Aminotransferase 30 U/L (10-49); Albumin, Serum 4.6 gm/dL (3.4-4.8); Albumin/Globulin Ratio 1.7 (1.2-2.2); Alkaline Phosphatase 84 U/L (46-116); Anion Gap 10 (7-16); Aspartate Amino Transferase 30 U/L (0-34); BUN/Creatinine Ratio 13 Ratio (12-20); Bilirubin,Total 0.7 mg/dL (0.3-1.2); Blood Urea Nitrogen 21 mg/dL (9-23); Calcium 9.1 mg/dL (8.3-10.6); Calcium (Corrected) 9.1 mg/dL (8.5-10.1); Carbon Dioxide 34.9 mMol/L (20.0-31.0); Chloride 100 mMol/L (98-107); Creatinine (Component) 1.6 mg/dL (0.6-1.3); Estimated Creatinine Clearance 47.2 mL/min (>60); Free T4 (Free Thyroxine) 1.04 ng/dL (0.89-1.76); Globulin 2.7 gm/dL (2.3-3.5); Glucose 127 mg/dL (74-106); Magnesium 1.2 mg/dL (1.6-2.6); Osmolality,Calculated 293 (275-295); Potassium 3.2 mMol/L (3.4-5.1); Sodium 145 mMol/L (136-145); Thyroid Stimulating Hormone 1.94 uIU/mL (0.55-4.78); Total Protein 7.3 gm/dL (5.7-8.2); Troponin I < 0.020 ng/mL (0.0-0.045); eGFR 46 See Note
[2025-06-13 14:45] LABS: B-Type Natriuretic Peptide 1717 pg/mL (0-100)
--- NOTE | 2025-06-13 15:01 | PD.EDRME ---
Rapid Medical Screening Exam RME Arrival date/time: 06/13/25 12:44 69-year-old male with a history of hypertension, hyperlipidemia, chronic kidney disease, presents to the emergency room with a chief complaint of left-sided sternal chest pain x 3 days I have greeted and performed a focused initial assessment of this patient. A comprehensive ED assessment and evaluation of the patient, analysis of all test results, and completion of the medical decision making process will be conducted by additional ED providers. Chief Complaint: General Adult/Misc Complain Time Seen by Provider: 06/13/25 13:01 Vital signs: Vital Signs Temperature 98.3 F 06/13/25 13:17 Pulse Rate 64 06/13/25 13:17 Respiratory Rate 19 06/13/25 13:17 Blood Pressure 160/86 H 06/13/25 13:17 Pulse Oximetry (%) 96 06/13/25 13:17 Oxygen Delivery Method Room Air 06/13/25 13:17 Vital signs reviewed by provider: Yes Exam: Patient has a strong and regular rhythm S1 and S2 noted. Patient is complaining of 8 out of 10 right sided sternal chest pain Soft nontender abdomen Clinical Impression: Chest pain/STEMI/NSTEMI
--- NOTE | 2025-06-13 16:30 | PD.EDCHEST ---
ED Chest Pain RME/HPI General Chief Complaint: General Adult/Misc Complain Stated Complaint: PAIN L) SIDE 8/10 Time Seen by Provider: 06/13/25 13:01 Arrival date/time: 06/13/25 12:44 RME / HPI RME / HPI narrative: 06/13/25 12:44 69-year-old male with a history of hypertension, hyperlipidemia, chronic kidney disease, presents to the emergency room with a chief complaint of left-sided sternal chest pain x 3 days I have greeted and performed a focused initial assessment of this patient. A comprehensive ED assessment and evaluation of the patient, analysis of all test results, and completion of the medical decision making process will be conducted by additional ED providers. DR. NYE MAIN ED EVALUATION: 69 year old male with history of hypertension, hyperlipidemia, CKD, presents to the ED for evaluation of left-sided chest/rib cage pain beginning 4 days ago with radiation to his back just below the shoulder blade. Pain described as aching in sensation, rating 8/10 in severity. Denies any falls or injuries that could have brought on the pain. Denies any sneezing or coughing prior to onset of pain. Denies any urinary symptoms. Denies fevers. Exam: Patient has a strong and regular rhythm S1 and S2 noted. Patient is complaining of 8 out of 10 right sided sternal chest pain Soft nontender abdomen Impression: Chest pain/STEMI/NSTEMI Related Data Home Medications ?Medication ?Instructions ?Recorded ?Confirmed duloxetine 60 mg capsule,delayed 60 mg PO DAILY 02/19/19 12/29/23 release metoprolol succinate 100 mg 100 mg PO DAILY 02/19/19 12/29/23 tablet,extended release 24 hr tamsulosin 0.4 mg capsule 0.8 mg PO QDAY 02/19/19 12/29/23 amlodipine 10 mg tablet 10 mg PO DAILY 12/29/23 12/29/23 cinacalcet 30 mg tablet 30 mg PO QDAY 12/29/23 12/29/23 clonidine HCl 0.2 mg tablet 0.2 mg PO BID 12/29/23 12/29/23 cyclobenzaprine 10 mg tablet 10 mg PO HS 12/29/23 12/29/23 dapagliflozin propanediol 10 mg 10 mg PO QAM 12/29/23 12/29/23 tablet (Farxiga) fosinopril 10 mg tablet 10 mg PO HS 12/29/23 12/29/23 hydralazine 50 mg tablet 50 mg PO TID 12/29/23 12/29/23 linagliptin 5 mg tablet (Tradjenta) 5 mg PO HS 12/29/23 12/29/23 omeprazole 40 mg capsule,delayed 40 mg PO QDAY 12/29/23 12/29/23 release pregabalin 100 mg capsule 100 mg PO BID 12/29/23 12/29/23 semaglutide 3 mg tablet (Rybelsus) 3 mg PO QDAY 12/29/23 12/29/23 tadalafil 5 mg tablet 5 mg PO HS 12/29/23 12/29/23 trazodone 100 mg tablet 200 mg PO HS 12/29/23 12/29/23 Previous Rx's ?Medication ?Instructions ?Recorded docusate sodium 100 mg capsule 100 mg PO BID #40 caps 12/30/23 (Colace) hydrocodone 5 mg-acetaminophen 325 1 tab PO Q6H PRN pain (scale score 12/30/23 mg tablet 7-10) #20 tabs ibuprofen 600 mg tablet 600 mg PO Q8H PRN pain (scale 12/30/23 score 4-6) #15 tabs hydrocodone 5 mg-acetaminophen 325 1 tab PO BID PRN pain #10 tabs 12/24/24 mg tablet hydrocodone 10 mg-acetaminophen 1 tab PO Q6H PRN pain #30 tabs 06/13/25 325 mg tablet Allergies Allergy/AdvReac Type Severity Reaction Status Date / Time adhesive Allergy Severe Hives Verified 06/13/25 12:48 Review of Systems Review of Systems Systems Reviewed: All systems reviewed, normal except as documented Past Medical History Past Medical History CARDIAC: Positive Cardiac Disorders, Hypercholesterolemia and Hypertension RESPIRATORY: Positive Pneumonia GASTROINTESTINAL: Positive Gastrointestinal Disorders, Hiatal Hernia, Gastroesophageal Reflux Disease and Obesity GENITOURINARY: Positive Genitourinary Disorders, Kidney Stones and Inguinal Hernia MUSCULOSKELETAL: Positive Musculoskeletal Disorders, Arthritis and Carpal Tunnel Syndrome (right) ENDOCRINE: Positive Endocrine Disorders and Diabetes Mellitus Type 2 PSYCHO/SOCIAL: Positive Depression and Anxiety OTHER HISTORY: Positive Hospitalization (surgery, Hypertention), Blood Transfusions, Chicken Pox, Measles and Mumps Family History FAMILY HISTORY: Positive Family Cardiac Disorders, Family Cancer and Family Surgery Surgical History SURGICAL: Positive Cardiac Catheterization (clear), Nose Surgery (septum), Throat Surgery (uvulectomy), Joint Replacement (x2 neck fusion) and Arthroscopy (Left knee); Negative Cardiac Surgery Social History SMOKING STATUS: Never smoker SECOND HAND EXPOSURE: No SUBSTANCE USE: does not use ED Exam Narrative Physical exam: Generally patient is alert and in no obvious distress, heart regular rate and rhythm, lungs clear to auscultation equal bilaterally, chest shows the patient have tenderness to the left lateral lower chest wall without crepitance or subcu air. No overlying skin rash. Abdomen is soft nondistended nontender, musculoskeletal exam showed no costovertebral angle tenderness, extremities show no edema, neurologic exam showed [place] Coma Scale of 15 Course Quality Measures none Orders Category Date Time Status EKG (ED ONLY) *Do not use* NOW Care 06/13/25 13:31 Completed EKG (ED Only) Stat Exams 06/13/25 13:31 Ordered XR chest 1V portable Stat Exams 06/13/25 13:31 Completed B-Type Natriuretic Peptide Stat Lab 06/13/25 13:51 Completed CBC Stat Lab 06/13/25 13:51 Completed Comprehensive Metabolic Panel Stat Lab 06/13/25 13:51 Completed D-Dimer Stat Lab 06/13/25 13:51 Completed Drug Screen,Urine Stat Lab 06/13/25 14:00 Completed Free T4 (Free Thyroxine) Stat Lab 06/13/25 13:51 Completed Magnesium Stat Lab 06/13/25 13:51 Completed Partial Thromboplastin Time Stat Lab 06/13/25 13:51 Completed Prothrombin Time with INR Stat Lab 06/13/25 13:51 Completed TSH [Thyroid Stimulating Hormone] Stat Lab 06/13/25 13:51 Completed Troponin I Stat Lab 06/13/25 13:51 Completed Urinalysis, C/S if Indicated Stat Lab 06/13/25 14:00 Completed Morphine* Inj Med 06/13/25 17:06 Discontinued 4 mg IM X1 ONE Vital Signs Vital signs: Vital Signs Temperature 98.3 F 06/13/25 13:17 Pulse Rate 64 06/13/25 13:17 Respiratory Rate 19 06/13/25 13:17 Blood Pressure 160/86 H 06/13/25 13:17 Pulse Oximetry (%) 96 06/13/25 13:17 Oxygen Delivery Method Room Air 06/13/25 13:17 Pulse ox is 96% on room air which is adequate. Chest Pain MDM Narrative MDM Narrative:: INitza, patience scribing for and in the presence of Dr. Nye. Chest x-ray was read as being normal. EKG is nonischemic. Troponin is not elevated. Chest pain has been going on for 3 to 4 days. D-dimer is not elevated. This appears to be reproducible chest pain. Patient was given morphine 4 mg IM here in the emergency room with benefit. He will be discharged on the limited number of hydrocodone to be taken as prescribed. Follow-up with his doctor. Return to ER as needed or if condition worsens. Patient does have a history of bypass surgery and coronary artery disease however this seems to be more compatible with chest wall pain as opposed to ischemic cardiac pain. Patient data External records reviewed:: [facility] previous records Clinical information provided by:: patient Social determinants that could affect healthcare access:: none Patient has the following chronic illnesses:: hypertension, hyperlipidemia, CKD How is presenting disease/condition affected by chronic disease/condition?: uneffected by Evaluation data The following diagnostics were reviewed and interpreted by me:: lab results and radiology exam(s) Lab and/or radiology exams considered but not ordered:: None Interpretation Summary: Ordering Physician: Javi Gonzalez Date of Service: 06/13/25 Procedure(s): XR chest 1V portable Accession Number(s): [id number] cc: Javi Gonzalez; Phong Cifuentes MD; Amber Tracey MD~ PA upright chest film on 06/13/2025 at 1:59 p.m. Comparison study 03/30/2025 CLINICAL INDICATION: Left-sided chest pain flank pain for 2 days no known drug FINDINGS: Sternotomy wire sutures are seen from previous chest surgery, and innumerable small surgical clips are seen overlying the left heart border and upper portion of the left hilum, probably related to previous CABG surgery additional surgical clips are seen over the lower portion of the cardiac silhouette. All of these findings are stable and unchanged heart size is felt to be slightly enlarged, and is unchanged since the previous chest Postsurgical hardware is noted overlapping the lower cervical spine and this is unchanged from the previous chest film both lungs are clear no pleural fluid is seen. IMPRESSION: 1. Status post CABG surgery. Mild prominence of the left ventricle. These findings are stable and unchanged 2. Lungs and pleural space are clear and normal 3 postsurgical hardware is seen overlapping the lower cervical spine, also unchanged Dictated By: Phong Cifuentes MD Signed By: <Electronically signed by Phong Cifuentes MD in [place]> 06/13/25 1436 Medications / Prescriptions Medications or Prescriptions considered but not ordered:: none Medication administrations:: Medication Administration History Discontinued Medications Morphine Sulfate (Morphine Sulf Inj 4 Mg/Ml Vial) 4 mg IM X1 ONE Stop: 06/13/25 17:07 Last Admin: 06/13/25 17:09 Dose: 4 mg Documented By: VL None Consultations Consultation(s) initiated? (list below): No Diagnosis Most likely diagnosis given after review of the tests above:: None Admission Indicated Admission indicated?: not indicated Admission Request Was there a request for admission?: No Disposition Plan Disposition Plan: Discharge Discharge Attestation Discharge Attestation: The patient and all family members were given an opportunity to ask questions and understood the discharge instructions. Discharge instructions specifically effects, indications for sooner follow up or return to the emergency department, and the expected course of current diagnosis. Patient condition: Stable Discharge Plan Plan Patient Disposition: HOME (Self Care) Prescriptions/Referrals Prescriptions/Med Rec: New hydrocodone-acetaminophen 10-325 mg tablet 1 tab PO Q6H MDD 4 PRN (Reason: pain) Qty: 30 0RF No Action metoprolol succinate 100 mg tablet extended release 24 hr 100 mg PO DAILY Patient Comments: TAKE 1 TABLET BY MOUTH EVERY DAY tamsulosin 0.4 mg capsule 0.8 mg PO QDAY duloxetine 60 mg capsule,delayed release(DR/EC) 60 mg PO DAILY Patient Comments: TAKE 1 CAPSULE BY MOUTH EVERY DAY cyclobenzaprine 10 mg Tablet 10 mg PO HS fosinopril 10 mg Tablet 10 mg PO HS omeprazole 40 mg Capsule,Delayed Release(Dr/Ec) 40 mg PO QDAY clonidine HCl 0.2 mg Tablet 0.2 mg PO BID trazodone 100 mg Tablet 200 mg PO HS amlodipine 10 mg tablet 10 mg PO DAILY Patient Comments: TAKE 1 TABLET BY MOUTH ONCE DAILY hydralazine 50 mg Tablet 50 mg PO TID tadalafil 5 mg Tablet 5 mg PO HS cinacalcet 30 mg Tablet 30 mg PO QDAY pregabalin 100 mg capsule 100 mg PO BID Tradjenta 5 mg tablet 5 mg PO HS Patient Comments: TAKE 1 TABLET BY MOUTH ONCE DAILY dapagliflozin propanediol [Farxiga] 10 mg Tablet 10 mg PO QAM Rybelsus 3 mg Tablet 3 mg PO QDAY docusate sodium [Colace] 100 mg capsule 100 mg PO BID Qty: 40 0RF ibuprofen 600 mg tablet 600 mg PO Q8H PRN (Reason: pain (scale score 4-6)) Qty: 15 0RF hydrocodone-acetaminophen 5-325 mg tablet 1 tab PO Q6H MDD 4 PRN (Reason: pain (scale score 7-10)) Qty: 20 0RF hydrocodone-acetaminophen 5-325 mg tablet 1 tab PO BID MDD 10 PRN (Reason: pain) Qty: 10 0RF Referrals: Amber Tracey MD [Primary Care Provider] - In 1 week Problem List Clinical Impression: Chest pain Patient/Caregiver Discharge Instructions Education Materials: ED Chest Pain, Uncertain Cause Additional Instructions: Medication as prescribed. Follow-up with your doctor. Return to ER as needed or if condition worsens. Print Language: Bulgarian Stand Alone Forms: Miranda Award Info., Patient Portal Info Letter
[2025-06-13] MEDS: MORPHINE SULF INJ 4 MG/ML VIAL IM (17:09)
[2025-06-13 17:12] LABS: D-Dimer < 250 ng/mL (<600)
[2025-06-13 18:22] VITALS: BP 178/94; PULSE 66; RESP 16; TEMP 37.1; O2SAT 96
== END 2025-06-13 18:23 | disposition home or self-care (01) ==
PROVIDERS: Nurse Practitioner Family; Emergency Provider Emergency Medicine; PCP Internal Medicine
DX: R07.2 Precordial pain (principal); R10.A2 Flank pain, left side; I49.3 Ventricular premature depolarization; I12.9 Hypertensive chronic kidney disease with stage 1 through stage 4 chronic kidney disease, or unspecified chronic kidney disease; N18.9 Chronic kidney disease, unspecified; E78.00 Pure hypercholesterolemia, unspecified; E11.22 Type 2 diabetes mellitus with diabetic chronic kidney disease; Z79.84 Long term (current) use of oral hypoglycemic drugs; Z79.85 Long-term (current) use of injectable non-insulin antidiabetic drugs; Z95.1 Presence of aortocoronary bypass graft
CPT/HCPCS: 36415; 71045; 80053; 80307; 81001; 83735; 83880; 84439; 84443; 84484; 85025; 85379; 85610; 85730; 93005; 96372; 99283; J2270